=== PATIENT | female | born 1980 | race Caucasian/White ===

== ENCOUNTER 2016-10-26 16:07 | Emergency (ER) | payer BC ==
[~2016-10-26] VITALS: Ht 170.2 cm; Wt 105.4 kg
[~2016-10-26 16:07] MED LIST: ~No Medications
[2016-10-26 17:43] VITALS: BP 126/83
== END 2016-10-26 17:43 | disposition home or self-care (01) ==
LOC: EME 16:07
DX: M79.661 Pain in right lower leg (principal); Z86.718 Personal history of other venous thrombosis and embolism
CPT/HCPCS: 93971; 99281; 99283

== ENCOUNTER 2016-10-30 21:37 | Emergency (ER) | payer BC ==
[~2016-10-30] VITALS: Ht 170.2 cm; Wt 107.4 kg
[2016-10-30 23:50] LABS: HEMATOCRIT 37.8 % (36.0-46.0); MCH 28.5 PG (29.0-34.0); MCHC 32.8 G/DL (30.0-36.0); MCV 86.9 FL (83-99); PLATELET COUNT 277 K/uL (156-360); RBC DIS.WIDTH-CV 13.2 % (11.8-14.6); RBC DIS.WIDTH-SD 41.6 % (39-53); RED BLOOD COUNT 4.35 M/uL (3.80-5.20); WHITE BLOOD COUNT 6.7 K/uL (4.1-10.2)
[2016-10-31] LABS: CHLORIDE 106 mEq/L (99-109); POTASSIUM 3.7 mEq/L (3.7-5.4); SODIUM 138 mEq/L (136-147)
[2016-10-31 00:02] LABS: GLUCOSE 95 mg/dL (70-99)
[2016-10-31 00:04] LABS: ANION GAP 8 MEQ/L (2-14)
[2016-10-31 00:06] LABS: GFR ESTIMATE (CALCULATED) > 59 mL/min/
[2016-10-31 00:07] LABS: UREA NITROGEN (BUN) 15 mg/dL (9-23)
[2016-10-31 00:17] LABS: QUANTITATIVE HCG < 4.0 MIU/ML
[2016-10-31 02:55] VITALS: BP 117/63
== END 2016-10-31 03:33 | disposition home or self-care (01) ==
LOC: EME 21:37
PROVIDERS: Physician Assistant
DX: M79.661 Pain in right lower leg (principal); M79.89 Other specified soft tissue disorders; R07.9 Chest pain, unspecified; Z86.718 Personal history of other venous thrombosis and embolism
CPT/HCPCS: 71275; 80048; 84702; 85027; 85379; 93971; 99281; 99283

== ENCOUNTER 2017-03-07 18:49 | Emergency (ER) | payer BC ==
[~2017-03-07] VITALS: Ht 170.2 cm; Wt 108.5 kg
[2017-03-07 19:19] LABS: HEMATOCRIT 42.2 % (36.0-46.0); MCH 29.4 PG (29.0-34.0); MCHC 33.9 G/DL (30.0-36.0); MCV 86.7 FL (83-99); MEAN PLAT.VOLUME 9.9 uM^3 (9.5-12.4); PLATELET COUNT 309 K/uL (156-360); RBC DIS.WIDTH-CV 13.2 % (11.8-14.6); RBC DIS.WIDTH-SD 41.3 % (39-53); RED BLOOD COUNT 4.87 M/uL (3.80-5.20); WHITE BLOOD COUNT 6.8 K/uL (4.1-10.2)
[2017-03-07 19:23] LABS: ADD MIUA? YES; BILIRUBIN NEGATIVE; BLOOD LARGE; COLOR YELLOW ((YELLOW)); GLUCOSE (STRIP) NEGATIVE; KETONES NEGATIVE; LEUKOCYTES SMALL; NITRITE NEGATIVE; PROTEIN (STRIP) 30; SPECIFIC GRAVITY 1.016 (1.000-1.030); UROBILINOGEN 0.2 MG/DL (0.2-1.0)
[2017-03-07 19:49] LABS: QUANTITATIVE HCG 112.9 MIU/ML
[2017-03-07 19:54] LABS: BACTERIA 2+ /HPF; EPITHELIAL CELLS 1+ /HPF; MUCUS NONE SEEN /LPF; RED BLOOD CELLS TNTC /HPF (0-5); UCUL ADDED? YES
[2017-03-07 19:58] LABS: CHLORIDE 107 mEq/L (99-109); POTASSIUM 3.5 mEq/L (3.7-5.4); SODIUM 142 mEq/L (136-147)
[2017-03-07 19:59] LABS: GLUCOSE 94 mg/dL (70-99)
[2017-03-07 20:01] LABS: ANION GAP 11 MEQ/L (2-14)
[2017-03-07 20:03] LABS: GFR ESTIMATE (CALCULATED) > 59 mL/min/
[2017-03-07 20:04] LABS: UREA NITROGEN (BUN) 13 mg/dL (9-23)
[2017-03-07] MEDS ORDERED: ZOFRAN ODT4 MG PO (21:26)
[2017-03-07] MEDS ORDERED: KEFLEX500 MG PO (21:26)
[2017-03-07 21:53] VITALS: BP 132/97
== END 2017-03-07 21:54 | disposition home or self-care (01) ==
LOC: EME 18:49
DX: O23.41 Unspecified infection of urinary tract in pregnancy, first trimester (principal); O20.0 Threatened abortion; R42 Dizziness and giddiness; O09.511 Supervision of elderly primigravida, first trimester; Z3A.01 Less than 8 weeks gestation of pregnancy; Z86.718 Personal history of other venous thrombosis and embolism
CPT/HCPCS: 76801; 80048; 81003; 84702; 85027; 87086; 93005; 99281; 99285; J7030